=== PATIENT | female | born 1950 | race Caucasian/White ===

== ENCOUNTER 2017-08-07 19:21 | Emergency (ER) | payer MEDICARE, BC, OTHER ==
[~2017-08-07] VITALS: Ht 177.8 cm; Wt 95.2 kg
[~2017-08-07 19:21] MED LIST: AMLO10 PO; CARV25; CIPR500 PO; Indapamide2.5 MG; LOSA50; Levothyroxine200 MCG PO; OXCA300
[2017-08-07 19:57] LABS: BASOPHILS ABSOLUTE AUTO 0.04 K/mm3 (0.00-0.23); BASOPHILS PERCENT AUTO 1 % (0-2); EOSINOPHILS ABSOLUTE AUTO 0.08 K/mm3 (0.00-0.68); EOSINOPHILS PERCENT AUTO 2 % (0-6); Hematocrit 38.8 % (33.0-51.0); Hemoglobin 13.6 g/dL (11.5-16.0); IMMATURE GRAN ABSOLUTE AUTO 0.01 K/mm3 (0.00-0.10); IMMATURE GRAN PERCENT AUTO 0 % (0-1); LYMPHOCYTES ABSOLUTE AUTO 1.55 K/mm3 (0.84-5.20); LYMPHOCYTES PERCENT AUTO 32 % (21-46); MONOCYTES ABSOLUTE AUTO 0.64 K/mm3 (0.16-1.47); MONOCYTES PERCENT AUTO 13 % (4-13); Mean Corpuscular HGB 32.3 pg (26.0-34.0); Mean Corpuscular HGB Conc 35.1 g/dL (31.5-36.5); Mean Corpuscular Volume 92 fL (80-100); Mean Platelet Volume 10.1 fL (9.1-12.4); NEUTROPHILS PERCENT AUTO 52 % (41-73); Platelet Count 171 K/mm3 (150-400); RDW Coefficient Variation 11.9 % (11.7-14.2); RDW Standard Deviation 40.7 fL (35.1-46.3); Red Blood Cell Count 4.21 M/mm3 (3.80-5.20); White Blood Cell Count 4.82 K/mm3 (4.00-11.30)
[2017-08-07] MEDS ORDERED: CARV6.25 PO (20:25)
[2017-08-07] MEDS ORDERED: Indapamide2.5 MG PO (20:26)
[2017-08-07] MEDS ORDERED: AMLO10 PO (20:26)
[2017-08-07] MEDS ORDERED: Trileptal600 MG PO (20:26)
[2017-08-07] MEDS ORDERED: LEVSOD100 PO (20:26)
[2017-08-07] MEDS ORDERED: PRAV20 PO (20:27)
[2017-08-07] MEDS ORDERED: LOSA50 PO (20:27)
[2017-08-07 20:35] LABS: Alanine Aminotransfer (ALT/SGP 78 U/L (12-78); Albumin, Blood 3.9 g/dL (3.4-5.0); Albumin/Globulin Ratio 1.1 (0.8-1.8); Alk Phos 81 U/L (50-136); Anion Gap 10 mmol/L (6-16); Aspartate Aminotrans (AST/SGOT 45 U/L (12-37); Blood Urea Nitrogen 17 mg/dL (8-24); Bun/Creatinine Ratio 23.1 (12.0-20.0); CO2, Blood 26 mmol/L (21-32); Calcium, Blood 8.8 mg/dL (8.5-10.1); Chloride, Blood 96 mmol/L (98-108); Creatinine, Blood 0.74 mg/dL (0.40-1.00); Globulin, Blood 3.7 g/dL (2.2-4.0); Glomerular Filtration Rate >60 (60-); Glucose, Blood 106 mg/dL (70-99); Potassium, Blood 3.5 mmol/L (3.5-5.5); Sodium, Blood 132 mmol/L (136-145); Total Protein, Blood 7.6 g/dL (6.4-8.2); Troponin I <0.015 ng/mL (0.000-0.040)
== END 2017-08-07 21:47 | disposition home or self-care (01) ==
LOC: ER 19:21
PROVIDERS: Emergency Medicine
DX: I10 Essential (primary) hypertension (principal); Z79.899 Other long term (current) drug therapy
CPT/HCPCS: 36415; 80053; 84484; 85025; 93005; 93010; 99283

== ENCOUNTER → 2018-12-17 | Outpatient (CLI) | payer MEDICARE, BC, OTHER ==
[~2018-12-17] MED LIST changes: +CARV6.25 PO; +Indapamide2.5 MG PO; +LEVSOD100 PO; +LOSA50 PO; +PRAV20 PO; +Trileptal600 MG PO
[2018-12-17 16:02] LABS: Source, Urine Clean Catch
[2018-12-17 17:52] LABS: Bilirubin, Urine Neg (Neg); Blood, Urine Neg (Neg); Glucose Qualitative, Urine Neg (Neg); Ketones, Urine Neg (Neg); Leukocyte Esterase, Urine 2+ (Neg); Nitrite, Urine Neg (Neg); Protein, Urine Neg (Neg); Specific Gravity, Urine 1.015 (1.003-1.022); Urobilinogen, Urine NORM (Normal)
[2018-12-17 18:19] LABS: Appearance, Urine Hazy (Clear); Color, Urine Yellow (P-Yellow)
[2018-12-17 18:20] LABS: Red Blood Cells, Urine 0-2 /hpf (0-2)
[2018-12-17 18:21] LABS: Bacteria Many /hpf; Squamous Epithelial Cells Mod /hpf (Few)
== END ==
LOC: LAB 16:01 → LAB SHORT 16:01
PROVIDERS: Nurse Practitioner Family
DX: R30.0 Dysuria (principal); R31.9 Hematuria, unspecified
CPT/HCPCS: 81001

== ENCOUNTER → 2025-04-11 | Outpatient (CLI) | payer MEDICARE, BC, OTHER | LOC: LAB 11:35 → LAB SHORT 11:35 | DX: M25.532 Pain in left wrist (principal) | CPT/HCPCS: 84550 ==